=== PATIENT | female | born 1935 | race Caucasian/White ===

== ENCOUNTER 2020-04-11 13:56 | Outpatient (REF) | payer MEDICARE, SELFPAY ==
[2020-04-11 16:46] LABS: INTERNATIONAL NORM RATIO 2.9 (0.9-1.1); Prothrombin Time 34.5 SEC (10.8-13.0)
== END 2020-04-11 13:57 | disposition home or self-care (01) ==
LOC: HO.HMGCLR 13:56
DX: I48.91 Unspecified atrial fibrillation (principal)
CPT/HCPCS: 36415; 85610

== ENCOUNTER 2020-06-12 10:01 | Outpatient (REF) | payer MEDICARE, SELFPAY ==
[2020-06-12 11:27] LABS: INTERNATIONAL NORM RATIO 2.4 (0.9-1.1); Prothrombin Time 28.2 SEC (10.8-13.0)
== END 2020-06-12 10:02 | disposition home or self-care (01) ==
LOC: HO.HMGCLR 10:01
DX: I48.91 Unspecified atrial fibrillation (principal)
CPT/HCPCS: 36415; 85610

== ENCOUNTER 2020-08-20 11:08 | Outpatient (REF) | payer MEDICARE, SELFPAY ==
[2020-08-20 11:31] VITALS: BP 193/88; PULSE 67; RESP 16; TEMP 37.3; O2SAT 97
[2020-08-20 11:36] VITALS: BMI 27.8
== END 2020-08-20 11:09 | disposition home or self-care (01) ==
LOC: HO.MS 11:08
PROVIDERS: Visit Provider Ophthalmology
PROC: (CPT 66821; principal; 2020-08-20 13:30)
DX: H26.492 Other secondary cataract, left eye (principal); Z96.1 Presence of intraocular lens; Z95.0 Presence of cardiac pacemaker; Z79.01 Long term (current) use of anticoagulants; Z79.899 Other long term (current) drug therapy; Z88.1 Allergy status to other antibiotic agents; Z88.2 Allergy status to sulfonamides
CPT/HCPCS: 66821

== ENCOUNTER 2020-09-03 12:52 | Outpatient (REF) | payer MEDICARE, SELFPAY ==
[2020-09-03 13:35] VITALS: BMI 27.8
[2020-09-03 13:36] VITALS: BP 189/83; PULSE 65; RESP 16; TEMP 37.1; O2SAT 95
== END 2020-09-03 12:53 | disposition home or self-care (01) ==
LOC: HO.MS 12:52
PROVIDERS: Visit Provider Ophthalmology
PROC: (CPT 66821; principal; 2020-09-03 14:40)
DX: H26.491 Other secondary cataract, right eye (principal); Z96.1 Presence of intraocular lens; I48.91 Unspecified atrial fibrillation; Z95.0 Presence of cardiac pacemaker; Z79.01 Long term (current) use of anticoagulants; Z79.899 Other long term (current) drug therapy
CPT/HCPCS: 66821

== ENCOUNTER 2020-09-29 21:50 | Emergency (ER) | payer MEDICARE, SELFPAY ==
--- NOTE | ~2020-09-29 | CT_ITS ---
EXAMINATION: CT BRAIN WITHOUT CONTRAST. Chest x-ray. CLINICAL INFORMATION: Dizziness COMPARISON: None TECHNIQUE: 5 mm thin axial and reformatted 2 mm thin sagittal coronal images of brain were obtained. DLP: [id number] FINDINGS: CHEST: The lungs are hyperinflated but clear of acute process. Heart size is mildly enlarged. There are dual pacer electrodes both in right ventricle. No gross bony abnormality seen BRAIN: There is no acute intra-axial, extra-axial bleed, masses or midline shift. There is no acute infarction in evolution. The lateral ventricles are symmetrical in size and configuration without enlargement. There is benign hyperostosis frontalis interna. Bone windows reveal no calvarial abnormality. There is no scalp soft tissue abnormality seen. Bilateral paranasal sinuses and mastoid air cells are well-aerated. CT/CT head/brain wo con IMPRESSION: Hyperinflated lungs without acute process. There is mild cardiomegaly. There are dual pacer electrodes both in the right ventricle. There is no acute intracranial process seen
[2020-09-29 22:38] VITALS: BP 191/80; BP 210/100; PULSE 60; PULSE 68; RESP 18; TEMP 36.6; O2SAT 97; O2SAT 98; BMI 31.5
--- NOTE | 2020-09-29 23:34 | ECG_ITS ---
Test Reason : DIZZINESS Blood Pressure : / mmHG Vent. Rate : 062 BPM Atrial Rate : 062 BPM P-R Int : 000 ms QRS Dur : 162 ms QT Int : 470 ms P-R-T Axes : 000 114 019 degrees QTc Int : 477 ms Ventricular-paced rhythm Abnormal ECG When compared with ECG of 28-JAN-2020 18:40, Vent. rate has increased BY 2 BPM Referred By: Thomas Parada Electronically Signed By:Chace Trivedi
--- NOTE | 2020-09-29 23:36 | ED_ITS ---
HPI - Dizziness General Chief Complaint: Dizziness Stated Complaint: dizzy Time Seen by Provider: 09/29/20 23:32 Source: patient and family (Granddaughter) Mode of arrival: ambulatory Limitations: no limitations History of Present Illness HPI Narrative: This is a 85-year-old female came in for evaluation of dizziness. 85 years old female came in with her granddaughter for evaluation of dizziness that was described as a room spinning around her, symptoms started 3 days ago, patient thought the symptoms is related to dehydration because the patient was not drinking enough fluids that day, patient normally is highly functional and lives home alone independently. Patient stated that the symptoms improved with drinking plenty of fluid, patient came to the hospital today because she still not feeling back to normal baseline. Patient declined any focal weakness or numbness. Related Data Allergies Allergy/AdvReac Type Severity Reaction Status Date / Time amoxicillin [Amoxicillin] Allergy Mild RASH Verified 09/29/20 22:38 Sulfa (Sulfonamide Allergy Mild RASH Verified 09/29/20 22:38 Antibiotics) sulfacetamide Allergy Unknown Unknown Verified 09/29/20 22:38 Review of Systems Review of Systems: All other systems are reviewed and are negative Constitutional: Reports as per HPI and Reports no additional constitutional complaints Eyes: Reports as per HPI and Reports no additional eye complaints Reports system reviewed and no additional complaints, except as documented Cardiovascular: Reports as per HPI patient has complained of palpitation. Respiratory: Reports as per HPI and Reports no additional respiratory complaints Gastrointestinal: Reports as per HPI and Reports no additional gastrointestinal complaints Genitourinary: Reports no additional female genitourinary complaints Musculoskeletal: Reports no additional musculoskeletal complaints Skin/Breast: Reports system reviewed and no additional complaints, except as docu Psychiatric: Reports no additional psychiatric complaints Endocrine: Reports no additional endocrine complaints Hematologic/Lymphatic: Reports no additional hematologic/lymphatic complaints Allergic/Immunologic: Reports no additional allergic/immunologic complaints Reports system reviewed and no additional complaints, except as documented and Reports Abnormal speech present [facility] Past Medical History Medical History Atrial fibrillation H/O cardiac pacemaker Social History Social History Smoking Status: Never smoker Use of substances other than those prescribed or required for medical reasons: No Advance Directives: Yes Advance Directives Date on File: 08/20/20 Physical Exam Vital Signs: Vital Signs: Last Vital Signs Temp 97.8 F 09/30/20 00:00 Pulse 89 09/30/20 06:00 Resp 23 H 09/30/20 06:00 BP 111/67 09/30/20 06:00 Pulse Ox 96 09/30/20 06:00 Body Mass Index 31.5 Vital signs have been reviewed as appeared to be correct. Blood pressure eleva misti. Heart rate normal. Respiration rate normal. Temperature normal. Oxygen saturation normal. Appearance: Alert. Oriented X3. No acute distress. Head: Normal external exam. Normocephalic. Atraumatic. No [place]ritchett signs noted. No raccoon eyes noted Eyes: PERRLA. EOMI. Conjunctiva and sclera normal. Eyelids normal. ENT: TM's Normal. Pharynx normal. Uvula midline. Moist mucous membranes. No trismus noted. No drooling noted. No muffled voice noted. Neck: Normal inspection. Neck supple. FROM. No adenopathy. Thyroid Normal. No meningeal signs. No neck mass noted. CVS: Normal heart rate and rhythm. Heart sound normal. No murmurs noted. Pulses normal throughout. Respiratory: No respiratory distress. Painless inspiration. Breath sounds normal. No wheezes/rales/rhonchi noted. Chest nontender. No accessory muscle usage noted or decreased air movement noted. Abdomen: Soft and nontender. Bowel sounds normal in all 4 quadrants. No distention noted. No organomegaly noted. No visible injury noted. Back: No CVA tenderness. Full range of motion noted. Skin: Skin warm and dry. Normal skin color. Normal skin turgor. No rashes/lesions/lacerations noted. Extremities: No lower extremity edema. Extremities exhibit normal range of motion. Extremities nontender. Neuro: Oriented X 3. No motor deficit. No sensory deficit. Reflexes normal. Able to ambulate in the emergency department with steady gait Course Course Course Narrative: Assessment and plan. 85-year-old female with history of vertigo presented with 3 days of vertigo/dizziness, patient has a normal neuro exam, unremarkable head CT, labs are unremarkable except for slightly elevated troponin and repeat troponin was 3 hours apart with less than the 1st 1. Patient declined any chest pain or shortness of breath, patient is awake and alert, repeat neuro exam is intact, patient feels better after hydration, will discharge the patient with instruction of rest, and drink plenty of fluid. MDM - Dizziness Lab Data Attestation: I reviewed the patient's lab results. Result diagrams: 09/30/20 01:05 09/30/20 01:05 Labs: Lab Results 09/30/20 09/30/20 09/30/20 Range/Units 01:05 01:05 01:05 WBC 4.7 L (4.8-10.8) X10*3/uL RBC 4.43 (4.20-5.50) X10*6/uL Hgb 13.4 (12.0-16.0) g/dl Hct 41.6 (37-47) % MCV 93.9 (80-98) fL MCH 30.2 (27.0-33.0) pg MCHC 32.2 (31.0-35.0) g/dl RDW 13.8 (11.0-16.0) % Plt Count 181 (160-400) X10*3/uL MPV 10.4 (9.4-12.3) fL Immature Gran % (Auto) 0.4 (0.0-0.4) % Neut % (Auto) 75.6 H (45-73) % Lymph % (Auto) 16.3 L (20-40) % [place] % (Auto) 6.7 (2-11) % Eos % (Auto) 0.4 (0-4) % Baso % (Auto) 0.6 (0-2) % Lymph # (Auto) 0.8 L (1.2-4.9) X10*3/uL [place] # (Auto) 0.3 (0.1-1.2) X10*3/uL Eos # (Auto) 0.0 (0.0-0.4) X10*3/uL Baso # (Auto) 0.0 (0.0-0.2) X10*3/uL Abs Immat Gran (auto) 0.02 (0.00-0.03) X10*3/uL Absolute Neuts (auto) 3.5 (2.0-8.3) X10*3/uL Absolute Nucleated RBC 0.000 (0.0-0.012) X10*3/uL Nucleated RBC % (auto) 0.0 (0.0-0.2) /100WBC Sodium 140 (135-145) mmol/L Potassium 4.2 (3.3-5.1) mmol/L Chloride 100 (96-108) mmol/L Carbon Dioxide 31 H (22-29) mmol/L Anion Gap 13 (12-20) BUN 13 (9-16) mg/dL Creatinine 0.81 (0.5-1.4) mg/dL Estim Creat Clear Calc 66.0 Estimated GFR > 60 Random Glucose 104 (60-115) mg/dL Calcium 9.4 (8.4-10.2) mg/dL Total Bilirubin 0.9 (0.0-1.0) mg/dL Direct Bilirubin 0.5 (0.0-0.5) mg/dL AST 16 (5-31) U/L ALT 7 (0-31) U/L Alkaline Phosphatase 128 H (39-117) U/L Troponin I High Sens 18.2 H (<3.5-17.0) ng/L B-Natriuretic Peptide 409 H (<100) pg/mL Total Protein 7.8 (6.5-8.0) g/dL Albumin 4.1 (3.5-5.0) g/dL Lipase 12 (8-78) U/L Urine Color Urine Appearance Urine pH (5.0-8.0) Ur Specific [place] (1.005-1.025) Urine Protein (NEG-TRACE) MG/DL Urine Glucose (UA) (NEG) MG/DL Urine Ketones (NEG) MG/DL Urine Blood (NEG) Urine Nitrite (NEG) Ur Leukocyte Esterase (NEG) Coronavirus (PCR) (Negative) Influenza Type A (PCR) (Negative) Influenza Type B (PCR) (Negative) RSV RNA Qual (PCR) (Negative) 09/30/20 09/30/20 09/30/20 Range/Units 01:27 02:21 05:17 WBC (4.8-10.8) X10*3/uL RBC (4.20-5.50) X10*6/uL Hgb (12.0-16.0) g/dl Hct (37-47) % MCV (80-98) fL MCH (27.0-33.0) pg MCHC (31.0-35.0) g/dl RDW (11.0-16.0) % Plt Count (160-400) X10*3/uL MPV (9.4-12.3) fL Immature Gran % (Auto) (0.0-0.4) % Neut % (Auto) (45-73) % Lymph % (Auto) (20-40) % [place] % (Auto) (2-11) % Eos % (Auto) (0-4) % Baso % (Auto) (0-2) % Lymph # (Auto) (1.2-4.9) X10*3/uL [place] # (Auto) (0.1-1.2) X10*3/uL Eos # (Auto) (0.0-0.4) X10*3/uL Baso # (Auto) (0.0-0.2) X10*3/uL Abs Immat Gran (auto) (0.00-0.03) X10*3/uL Absolute Neuts (auto) (2.0-8.3) X10*3/uL Absolute Nucleated RBC (0.0-0.012) X10*3/uL Nucleated RBC % (auto) (0.0-0.2) /100WBC Sodium (135-145) mmol/L Potassium (3.3-5.1) mmol/L Chloride (96-108) mmol/L Carbon Dioxide (22-29) mmol/L Anion Gap (12-20) BUN (9-16) mg/dL Creatinine (0.5-1.4) mg/dL Estim Creat Clear Calc Estimated GFR Random Glucose (60-115) mg/dL Calcium (8.4-10.2) mg/dL Total Bilirubin (0.0-1.0) mg/dL Direct Bilirubin (0.0-0.5) mg/dL AST (5-31) U/L ALT (0-31) U/L Alkaline Phosphatase (39-117) U/L Troponin I High Sens 17.2 H (<3.5-17.0) ng/L B-Natriuretic Peptide (<100) pg/mL Total Protein (6.5-8.0) g/dL Albumin (3.5-5.0) g/dL Lipase (8-78) U/L Urine Color YELLOW Urine Appearance CLEAR Urine pH 7.0 (5.0-8.0) Ur Specific [place] 1.015 (1.005-1.025) Urine Protein NEG (NEG-TRACE) MG/DL Urine Glucose (UA) NEG (NEG) MG/DL Urine Ketones NEG (NEG) MG/DL Urine Blood NEG (NEG) Urine Nitrite NEG (NEG) Ur Leukocyte Esterase NEG (NEG) Coronavirus (PCR) NEGATIVE (Negative) Influenza Type A (PCR) NEGATIVE (Negative) Influenza Type B (PCR) NEGATIVE (Negative) RSV RNA Qual (PCR) NEGATIVE (Negative) Imaging Data CT scan - head: Radiologist's impression: No acute intracranial pathology. Chest x-ray: Radiologist's impression: Hyperinflated lungs without acute process, there is a mild cardiomegaly. ECG Data Interpretation: Ventricular paced rhythm at 62 beats per minutes. Discharge Plan Discharge Clinical Impression: Vertigo Patient Disposition: Home, Self-Care Instructions: Dizziness (ED) Additional Instructions: rest home for the next 2 days, drink plenty of fluid. Referrals: Jian Tinoco MD [Primary Care Provider] - 2 days
[2020-09-30] VITALS (7 sets, daily range): BP systolic 111–186; BP diastolic 64–85; PULSE 62–89; RESP 14–23; TEMP 36.6; O2SAT 96–98
[2020-09-30] MEDS: 0.9 % Sodium Chloride 1,000 ML 999 ML IVCONT (01:18)
[2020-09-30 01:21] LABS: MANUAL DIFF FLAG NO
[2020-09-30 01:25] LABS: Basophils Percent Auto 0.6 % (0-2); Eosinophils Percent Auto 0.4 % (0-4); Hematocrit 41.6 % (37-47); Hemoglobin 13.4 g/dl (12.0-16.0); Imm Gran Abs Auto 0.02 X10*3/uL (0.00-0.03); Imm Gran Pct Auto 0.4 % (0.0-0.4); Lymphocytes Absolute Auto 0.8 X10*3/uL (1.2-4.9); Lymphocytes Percent Auto 16.3 % (20-40); Mean Corpuscular HGB Conc 32.2 g/dl (31.0-35.0); Mean Corpuscular Hemoglobin 30.2 pg (27.0-33.0); Mean Corpuscular Volume 93.9 fL (80-98); Mean Platelet Volume 10.4 fL (9.4-12.3); Monocytes Absolute Auto 0.3 X10*3/uL (0.1-1.2); Monocytes Percent Auto 6.7 % (2-11); Neutrophils Absolute Auto 3.5 X10*3/uL (2.0-8.3); Neutrophils Percent Auto 75.6 % (45-73); Platelet Count 181 X10*3/uL (160-400); Red Blood Count 4.43 X10*6/uL (4.20-5.50); Red Cell Distribution Width 13.8 % (11.0-16.0); White Blood Count 4.7 X10*3/uL (4.8-10.8)
[2020-09-30 01:46] LABS: Alanine Aminotransferase 7 U/L (0-31); Albumin Level 4.1 g/dL (3.5-5.0); Alkaline Phosphatase 128 U/L (39-117); Anion Gap 13 (12-20); Aspartate Amino Transferase 16 U/L (5-31); Bilirubin Direct 0.5 mg/dL (0.0-0.5); Bilirubin Total 0.9 mg/dL (0.0-1.0); Blood Urea Nitrogen 13 mg/dL (9-16); Calcium 9.4 mg/dL (8.4-10.2); Carbon Dioxide 31 mmol/L (22-29); Chloride 100 mmol/L (96-108); Estimated Glomerular Filt Rate > 60; Glucose Random 104 mg/dL (60-115); Lipase 12 U/L (8-78); Potassium 4.2 mmol/L (3.3-5.1); Sodium 140 mmol/L (135-145); Total Protein 7.8 g/dL (6.5-8.0)
[2020-09-30 01:52] LABS: B Type Natriuretic Peptide 409 pg/mL (<100)
[2020-09-30 01:53] LABS: Troponin-I High Sensitivity 18.2 ng/L (<3.5-17.0)
[2020-09-30 02:11] LABS: Influenza A PCR NEGATIVE (Negative); Influenza B PCR NEGATIVE (Negative); Resp Syncy Virus RNA Qual PCR NEGATIVE (Negative); SARS COV2 PCR INHOUSE NEGATIVE (Negative)
[2020-09-30 02:31] LABS: Glucose Urine UA NEG (NEG); Leukocyte Esterase Urine NEG (NEG); Nitrite Urine NEG (NEG); Specific Gravity - Urine 1.015 (1.005-1.025); Urine Blood NEG (NEG); Urine Ketones NEG (NEG); Urine Protein NEG (NEG-TRACE)
[2020-09-30 02:32] LABS: Appearance Urine CLEAR; Color Urine YELLOW
[2020-09-30 05:47] LABS: Troponin-I High Sensitivity 17.2 ng/L (<3.5-17.0)
== END 2020-09-30 07:43 | disposition home or self-care (01) ==
PROVIDERS: Emergency Provider Emergency Medicine; PCP Family Medicine
DX: R42 Dizziness and giddiness (principal); Z20.822 Contact with and (suspected) exposure to COVID-19; Z95.0 Presence of cardiac pacemaker; I48.91 Unspecified atrial fibrillation
CPT/HCPCS: 0241U; 36415; 70450; 71045; 80048; 80076; 81003; 83690; 83880; 84484; 85025; 93005; 96360; 99284

== ENCOUNTER 2021-01-19 15:12 | Emergency (ER) | payer MEDICARE, SELFPAY ==
--- NOTE | ~2021-01-19 | XR_ITS ---
EXAMINATION: XR CHEST CLINICAL INFORMATION: Weakness. COMPARISON: 09/29/2020 portable chest radiograph. TECHNIQUE: Frontal view of the chest was obtained. FINDINGS: Support devices: Left-sided dual-lead pacemaker with leads overlying the right ventricle without interval change. No significant abnormality is noted involving the heart, lungs, mediastinum, bony thorax or soft tissues. XR/XR chest 1V IMPRESSION: No acute cardiopulmonary process.
--- NOTE | ~2021-01-19 | CT_ITS ---
EXAMINATION: CT HEAD WITHOUT CONTRAST CLINICAL INFORMATION: Weakness. COMPARISON: 09/29/[address] scan. TECHNIQUE: Contiguous axial imaging was performed from the skull base to vertex without intravenous administration of contrast. Coronal and sagittal reformatted images were obtained. This CT examination was performed using dose optimization techniques as appropriate, variously including the following: *Automated exposure control *Adjustment of mA and/or kV according to patient size (this includes techniques or standardized protocols for targeted exams where dose is matched to indication/reason for exam; i.e. extremities or head) *Use of iterative reconstruction technique DLP: 658 mGy-cm FINDINGS: There is mild widening of the cortical sulci and associated ventriculomegaly. The lateral ventricles are symmetrical. The third and fourth ventricles are in their normal midline position. The basilar and prepontine cisterns are unremarkable. There is no acute intra or extracerebral abnormality. There is no mass effect or midline shift. Sections through the bony calvarium are unremarkable. Incidental hyperostosis frontalis interna. The orbits are intact. The paranasal sinuses are clear. The mastoid air cells are clear. CT/CT head/brain wo con IMPRESSION: No acute intracranial pathology.
[2021-01-19 15:20] VITALS: BP 162/73; PULSE 68; O2SAT 97
[2021-01-19 15:28] VITALS: BP 165/70; PULSE 64; RESP 16; TEMP 36.6; O2SAT 97; BMI 34.8
--- NOTE | 2021-01-19 15:32 | ECG_ITS ---
Test Reason : DIZZINESS Blood Pressure : / mmHG Vent. Rate : 061 BPM Atrial Rate : 063 BPM P-R Int : 000 ms QRS Dur : 158 ms QT Int : 472 ms P-R-T Axes : 000 113 018 degrees QTc Int : 475 ms Ventricular-paced rhythm Underlying atrial rhythm appears to be possible AF Abnormal ECG When compared with ECG of 30-SEP-2020 00:39, No significant change was found Referred By: Generic ED Physician Electronically Signed By:HECTOR HOWARD MD
[2021-01-19 15:55] VITALS: BP 153/61; PULSE 60; RESP 16; O2SAT 98
--- NOTE | 2021-01-19 16:05 | ED.WEAKNESS ---
HPI - Weakness General Chief complaint: Weakness Stated complaint: dizzy, lightheaded Time Seen by Provider: 01/19/21 16:05 Source: patient Mode of arrival: ambulatory Limitations: no limitations History of Present Illness Complaint: generalized weakness Onset (ago): hour(s) (early this AM upon waking) Duration: improved Location: generalized Migration: none Severity: moderate Quality: dull Relieving factors: none Exacerbating factors: movement Context: history of similar Associated symptoms: other (dizziness) Related Data Previous Rx's Medication Instructions Recorded cefuroxime axetil 250 mg PO BID 7 Days #14 tab 01/19/21 Allergies Allergy/AdvReac Type Severity Reaction Status Date / Time amoxicillin [Amoxicillin] Allergy Mild RASH Verified 09/29/20 22:38 Sulfa (Sulfonamide Allergy Mild RASH Verified 09/29/20 22:38 Antibiotics) sulfacetamide Allergy Unknown Unknown Verified 09/29/20 22:38 Review of Systems Review of Systems: Constitutional : No Weight loss, No Fever, No Chills, No Fatigue, No Malaise ENT/Mouth : No sore throat, No Rhinorrhea Eyes: No Eye Pain, No Swelling, No Redness Cardiovascular : No Chest Pain, No SOB, No Dyspnea on Exertion, No Orthopnea, No Edema, No Palpitations Respiratory : No Cough, No Sputum, No Wheezing Gastrointestinal : No Nausea, No Vomiting, No Diarrhea, No Constipation, No abdominal Pain, No Hematochezia, No Melena Genitourinary : No Dysuria, No Urinary Frequency, No Hematuria, Musculoskeletal : No joint pain, No Myalgias, No Joint Swelling Skin : No Skin Lesions, No rash Neuro : pos Weakness, No Numbness, pos Dizziness, No Headache Psych : No Anxiety/Panic, No Depression Heme/Lymph: No Bruising, No Bleeding,No Lymphadenopathy Endocrine : No Polyuria, No Polydipsia All other systems reviewed and are negative PMFSH Past Medical History Attestation statement: The following information was validated with the patient. Medical History Atrial fibrillation H/O cardiac pacemaker Social History Social History Alcohol intake: never Patient Tobacco Use Status: Never used Tobacco Use of substances other than those prescribed or required for medical reasons: No Advance Directives: No Advance Directives Information Provided: No Advance Directives Date on File: 08/20/20 Physical Exam Vital Signs: Vital Signs: Last Vital Signs Temp 97.8 F 01/19/21 15:28 Pulse 80 01/19/21 18:12 Resp 16 01/19/21 18:12 BP 178/84 H 01/19/21 18:12 Pulse Ox 95 01/19/21 18:12 Body Mass Index 34.8 Appearance: Alert. Oriented X3. No acute distress. Eyes: Pupils equal, round and reactive to light. ENT: Pharynx normal. Neck: Normal inspection. Neck supple. CVS: Normal heart rate and rhythm. Pulses normal. Ejection murmur heard best left lower chest Respiratory: No respiratory distress. Breath sounds normal. Abdomen: Soft and nontender. Skin: Skin warm and dry. Normal skin color. Normal skin turgor. Extremities: No lower extremity edema. No calf ttp Neuro: Oriented X 3. No motor deficit. No sensory deficit. Course Course Course Narrative: WBCs in urine clumps - will start on IV antibiotics for infection no signs of sepsis, feels better, up and to the bathroom with a steady gait and no complaints, wants to go home MDM - Weakness MDM Narrative Medical decision making narrative: 85 yo female with hx of HTN, PPM afib on coumadin comes in with c/o diffuse weakness, dizziness that is improving episode this AM - states she still just doesn't feel right, will need labs, EKG, IVF, CT head for ICH, UA, no CP/SOB, no GIB symptoms dispo per results and findings, no focal deficits noted Lab Data Result diagrams: 01/19/21 16:41 01/19/21 16:41 Labs: Lab Results 01/19/21 01/19/21 01/19/21 Range/Units 16:25 16:41 16:41 WBC 5.0 (4.8-10.8) X10*3/uL RBC 4.58 (4.20-5.50) X10*6/uL Hgb 13.8 (12.0-16.0) g/dl Hct 41.6 (37-47) % MCV 90.8 (80-98) fL MCH 30.1 (27.0-33.0) pg MCHC 33.2 (31.0-35.0) g/dl RDW 13.9 (11.0-16.0) % Plt Count 152 L (160-400) X10*3/uL MPV 10.5 (9.4-12.3) fL Immature Gran % (Auto) 0.2 (0.0-0.4) % Neut % (Auto) 77.4 H (45-73) % Lymph % (Auto) 13.1 L (20-40) % [place] % (Auto) 7.9 (2-11) % Eos % (Auto) 0.6 (0-4) % Baso % (Auto) 0.8 (0-2) % Lymph # (Auto) 0.7 L (1.2-4.9) X10*3/uL [place] # (Auto) 0.4 (0.1-1.2) X10*3/uL Eos # (Auto) 0.0 (0.0-0.4) X10*3/uL Baso # (Auto) 0.0 (0.0-0.2) X10*3/uL Abs Immat Gran (auto) 0.01 (0.00-0.03) X10*3/uL Absolute Neuts (auto) 3.9 (2.0-8.3) X10*3/uL Absolute Nucleated RBC 0.000 (0.0-0.012) X10*3/uL Nucleated RBC % (auto) 0.0 (0.0-0.2) /100WBC PT 36.0 H (9.9-13.0) SEC INR 3.1 H (0.9-1.1) APTT 46.0 H (24.1-38.0) SEC Sodium (135-145) mmol/L Potassium (3.3-5.1) mmol/L Chloride (96-108) mmol/L Carbon Dioxide (22-29) mmol/L Anion Gap (12-20) BUN (9-16) mg/dL Creatinine (0.5-1.4) mg/dL Estim Creat Clear Calc Estimated GFR Random Glucose (60-115) mg/dL Lactic Acid (0.5-2.0) mmol/L Calcium (8.4-10.2) mg/dL Magnesium (1.6-2.6) mg/dL Total Bilirubin (0.0-1.0) mg/dL Direct Bilirubin (0.0-0.5) mg/dL AST (5-31) U/L ALT (0-31) U/L Alkaline Phosphatase (39-117) U/L Troponin I High Sens (<3.5-17.0) ng/L B-Natriuretic Peptide (<100) pg/mL Total Protein (6.5-8.0) g/dL Albumin (3.5-5.0) g/dL Lipase (8-78) U/L TSH (0.32-4.0) uIU/mL Urine Color STRAW Urine Appearance CLEAR Urine pH 6.0 (5.0-8.0) Ur Specific [place] <= 1.005 (1.005-1.025) Urine Protein NEG (NEG-TRACE) MG/DL Urine Glucose (UA) NEG (NEG) MG/DL Urine Ketones NEG (NEG) MG/DL Urine Blood TRACE (NEG) Urine Nitrite NEG (NEG) Ur Leukocyte Esterase 1+ H (NEG) Urine RBC 0-2 (0) /HPF Urine WBC 5-9 H (0-4) /HPF Urine WBC Clumps NOTED Ur Squamous Epith Cells 1+ /LPF Ur Renal Epithelial Cell TRACE /LPF Uric Acid Crystals 1+ /LPF Urine Bacteria TRACE /LPF Urine Mucus TRACE /LPF COVID-19 ([facility]) (Negative) COVID-19 Clin Com 01/19/21 01/19/21 01/19/21 Range/Units 16:41 16:41 16:41 WBC (4.8-10.8) X10*3/uL RBC (4.20-5.50) X10*6/uL Hgb (12.0-16.0) g/dl Hct (37-47) % MCV (80-98) fL MCH (27.0-33.0) pg MCHC (31.0-35.0) g/dl RDW (11.0-16.0) % Plt Count (160-400) X10*3/uL MPV (9.4-12.3) fL Immature Gran % (Auto) (0.0-0.4) % Neut % (Auto) (45-73) % Lymph % (Auto) (20-40) % [place] % (Auto) (2-11) % Eos % (Auto) (0-4) % Baso % (Auto) (0-2) % Lymph # (Auto) (1.2-4.9) X10*3/uL [place] # (Auto) (0.1-1.2) X10*3/uL Eos # (Auto) (0.0-0.4) X10*3/uL Baso # (Auto) (0.0-0.2) X10*3/uL Abs Immat Gran (auto) (0.00-0.03) X10*3/uL Absolute Neuts (auto) (2.0-8.3) X10*3/uL Absolute Nucleated RBC (0.0-0.012) X10*3/uL Nucleated RBC % (auto) (0.0-0.2) /100WBC PT (9.9-13.0) SEC INR (0.9-1.1) APTT (24.1-38.0) SEC Sodium 134 L (135-145) mmol/L Potassium 4.2 (3.3-5.1) mmol/L Chloride 97 (96-108) mmol/L Carbon Dioxide 29 (22-29) mmol/L Anion Gap 12 (12-20) BUN 13 (9-16) mg/dL Creatinine 0.81 (0.5-1.4) mg/dL Estim Creat Clear Calc 67.3 Estimated GFR > 60 Random Glucose 102 (60-115) mg/dL Lactic Acid (0.5-2.0) mmol/L Calcium 9.6 (8.4-10.2) mg/dL Magnesium 1.9 (1.6-2.6) mg/dL Total Bilirubin 0.9 (0.0-1.0) mg/dL Direct Bilirubin 0.4 (0.0-0.5) mg/dL AST 20 (5-31) U/L ALT < 6 (0-31) U/L Alkaline Phosphatase 128 H (39-117) U/L Troponin I High Sens 13.9 (<3.5-17.0) ng/L B-Natriuretic Peptide 476 H (<100) pg/mL Total Protein 7.9 (6.5-8.0) g/dL Albumin 4.2 (3.5-5.0) g/dL Lipase 12 (8-78) U/L TSH 1.47 (0.32-4.0) uIU/mL Urine Color Urine Appearance Urine pH (5.0-8.0) Ur Specific [place] (1.005-1.025) Urine Protein (NEG-TRACE) MG/DL Urine Glucose (UA) (NEG) MG/DL Urine Ketones (NEG) MG/DL Urine Blood (NEG) Urine Nitrite (NEG) Ur Leukocyte Esterase (NEG) Urine RBC (0) /HPF Urine WBC (0-4) /HPF Urine WBC Clumps Ur Squamous Epith Cells /LPF Ur Renal Epithelial Cell /LPF Uric Acid Crystals /LPF Urine Bacteria /LPF Urine Mucus /LPF COVID-19 ([facility]) Negative (Negative) COVID-19 Clin Com See Note 01/19/21 Range/Units 17:19 WBC (4.8-10.8) X10*3/uL RBC (4.20-5.50) X10*6/uL Hgb (12.0-16.0) g/dl Hct (37-47) % MCV (80-98) fL MCH (27.0-33.0) pg MCHC (31.0-35.0) g/dl RDW (11.0-16.0) % Plt Count (160-400) X10*3/uL MPV (9.4-12.3) fL Immature Gran % (Auto) (0.0-0.4) % Neut % (Auto) (45-73) % Lymph % (Auto) (20-40) % [place] % (Auto) (2-11) % Eos % (Auto) (0-4) % Baso % (Auto) (0-2) % Lymph # (Auto) (1.2-4.9) X10*3/uL [place] # (Auto) (0.1-1.2) X10*3/uL Eos # (Auto) (0.0-0.4) X10*3/uL Baso # (Auto) (0.0-0.2) X10*3/uL Abs Immat Gran (auto) (0.00-0.03) X10*3/uL Absolute Neuts (auto) (2.0-8.3) X10*3/uL Absolute Nucleated RBC (0.0-0.012) X10*3/uL Nucleated RBC % (auto) (0.0-0.2) /100WBC PT (9.9-13.0) SEC INR (0.9-1.1) APTT (24.1-38.0) SEC Sodium (135-145) mmol/L Potassium (3.3-5.1) mmol/L Chloride (96-108) mmol/L Carbon Dioxide (22-29) mmol/L Anion Gap (12-20) BUN (9-16) mg/dL Creatinine (0.5-1.4) mg/dL Estim Creat Clear Calc Estimated GFR Random Glucose (60-115) mg/dL Lactic Acid 1.0 (0.5-2.0) mmol/L Calcium (8.4-10.2) mg/dL Magnesium (1.6-2.6) mg/dL Total Bilirubin (0.0-1.0) mg/dL Direct Bilirubin (0.0-0.5) mg/dL AST (5-31) U/L ALT (0-31) U/L Alkaline Phosphatase (39-117) U/L Troponin I High Sens (<3.5-17.0) ng/L B-Natriuretic Peptide (<100) pg/mL Total Protein (6.5-8.0) g/dL Albumin (3.5-5.0) g/dL Lipase (8-78) U/L TSH (0.32-4.0) uIU/mL Urine Color Urine Appearance Urine pH (5.0-8.0) Ur Specific [place] (1.005-1.025) Urine Protein (NEG-TRACE) MG/DL Urine Glucose (UA) (NEG) MG/DL Urine Ketones (NEG) MG/DL Urine Blood (NEG) Urine Nitrite (NEG) Ur Leukocyte Esterase (NEG) Urine RBC (0) /HPF Urine WBC (0-4) /HPF Urine WBC Clumps Ur Squamous Epith Cells /LPF Ur Renal Epithelial Cell /LPF Uric Acid Crystals /LPF Urine Bacteria /LPF Urine Mucus /LPF COVID-19 ([facility]) (Negative) COVID-19 Clin Com ECG Data Attestation: I personally reviewed and interpreted this ECG as follows: ECG interpretation date: 07/24/21 ECG interpretation time: 16:15 Interpretation: Rate: 61 Rhythm: ventricular paced [place]: left wide QRS complex. ST T wave : nonspecific, no TONY qTC: normal prior studies: no ischemia artifact present The study has been interpreted contemporaneously by me. . Discharge Plan Discharge Clinical Impression: Acute UTI Patient Disposition: Home, Self-Care Instructions: Urinary Tract Infection in Women (ED) Additional Instructions: return to ED for any worsening symptoms or concerns INR 3.1 Prescriptions: New cefuroxime axetil 250 mg tablet 250 mg PO BID 7 Days Qty: 14 RF: 0 Referrals: Jian Tinoco MD [Primary Care Provider] - 2 days (if not better)
[2021-01-19 16:36] LABS: Glucose Urine UA NEG (NEG); Leukocyte Esterase Urine 1+ (NEG); Nitrite Urine NEG (NEG); Specific Gravity - Urine <= 1.005 (1.005-1.025); UACC Culture Trigger YES; Urine Blood TRACE (NEG); Urine Ketones NEG (NEG); Urine Protein NEG (NEG-TRACE)
[2021-01-19 16:39] LABS: Appearance Urine CLEAR; Color Urine STRAW
[2021-01-19 16:50] LABS: MANUAL DIFF FLAG NO
[2021-01-19 16:52] LABS: Bacteria Urine TRACE /LPF; RBC Urine 0-2 /HPF (0); Renal Epithelial Cells Urine TRACE /LPF; Squamous Epithelial Cell Urine 1+ /LPF
[2021-01-19 16:53] LABS: Mucus Urine TRACE /LPF; Uric Acid Crystals Urine 1+ /LPF; WBC Clumps Urine NOTED
[2021-01-19 16:55] LABS: Basophils Percent Auto 0.8 % (0-2); Eosinophils Percent Auto 0.6 % (0-4); Hematocrit 41.6 % (37-47); Hemoglobin 13.8 g/dl (12.0-16.0); Imm Gran Abs Auto 0.01 X10*3/uL (0.00-0.03); Imm Gran Pct Auto 0.2 % (0.0-0.4); Lymphocytes Absolute Auto 0.7 X10*3/uL (1.2-4.9); Lymphocytes Percent Auto 13.1 % (20-40); Mean Corpuscular HGB Conc 33.2 g/dl (31.0-35.0); Mean Corpuscular Hemoglobin 30.1 pg (27.0-33.0); Mean Corpuscular Volume 90.8 fL (80-98); Mean Platelet Volume 10.5 fL (9.4-12.3); Monocytes Absolute Auto 0.4 X10*3/uL (0.1-1.2); Monocytes Percent Auto 7.9 % (2-11); Neutrophils Absolute Auto 3.9 X10*3/uL (2.0-8.3); Neutrophils Percent Auto 77.4 % (45-73); Platelet Count 152 X10*3/uL (160-400); Red Blood Count 4.58 X10*6/uL (4.20-5.50); Red Cell Distribution Width 13.9 % (11.0-16.0)
[2021-01-19 17:00] LABS: INTERNATIONAL NORM RATIO 3.1 (0.9-1.1)
[2021-01-19 17:15] LABS: COVID-19 Test Negative (Negative)
[2021-01-19 17:21] LABS: Alanine Aminotransferase < 6 U/L (0-31); Albumin Level 4.2 g/dL (3.5-5.0); Alkaline Phosphatase 128 U/L (39-117); Anion Gap 12 (12-20); Aspartate Amino Transferase 20 U/L (5-31); Bilirubin Direct 0.4 mg/dL (0.0-0.5); Bilirubin Total 0.9 mg/dL (0.0-1.0); Blood Urea Nitrogen 13 mg/dL (9-16); Calcium 9.6 mg/dL (8.4-10.2); Carbon Dioxide 29 mmol/L (22-29); Chloride 97 mmol/L (96-108); Creatinine Clr Calc Pharmacy 67.3; Estimated Glomerular Filt Rate > 60; Glucose Random 102 mg/dL (60-115); Lipase 12 U/L (8-78); Magnesium 1.9 mg/dL (1.6-2.6); Potassium 4.2 mmol/L (3.3-5.1); Sodium 134 mmol/L (135-145); Total Protein 7.9 g/dL (6.5-8.0)
[2021-01-19 17:22] LABS: B Type Natriuretic Peptide 476 pg/mL (<100); Troponin-I High Sensitivity 13.9 ng/L (<3.5-17.0)
[2021-01-19] MEDS: cefTRIAXone sodium 1 GM in 0.9 % Sodium Chloride 50 ML IV (17:25)
[2021-01-19 17:39] LABS: TSH reflex Free T4 1.47 uIU/mL (0.32-4.0)
[2021-01-19 18:12] VITALS: BP 178/84; PULSE 80; RESP 16; O2SAT 95
== END 2021-01-19 19:05 | disposition home or self-care (01) ==
PROVIDERS: Emergency Provider Emergency Medicine; PCP Family Medicine
DX: N39.0 Urinary tract infection, site not specified (principal); Z20.822 Contact with and (suspected) exposure to COVID-19; R53.1 Weakness; I48.91 Unspecified atrial fibrillation; I10 Essential (primary) hypertension; Z79.01 Long term (current) use of anticoagulants
CPT/HCPCS: 36415; 70450; 71045; 80048; 80076; 81001; 81003; 83605; 83690; 83735; 83880; 84443; 84484; 85025; 85610; 85730; 87040; 87086; 87088; 87186; 87635; 93005; 96365; 99284; J0696

== ENCOUNTER 2021-01-20 13:06 | Emergency (ER) | payer MEDICARE, SELFPAY ==
[2021-01-20 13:11] VITALS: BP 167/83; PULSE 69; RESP 18; TEMP 36.8; O2SAT 95; BMI 29.8
--- NOTE | 2021-01-20 13:51 | ED_ITS ---
HPI - General Adult General Chief complaint: General Medical Stated complaint: WEAKNESS Time Seen by Provider: 01/20/21 13:08 Source: patient Mode of arrival: ambulatory History of Present Illness HPI narrative: 85-year-old female with a past medical history of AFib on Coumadin, pacemaker, Dx with UTI in our ED yesterday of IV Rocephin in the ED, then switched to Macrobid by pharmacy which patient took 1 dose of this morning, presenting back to emergency department complaining of generalized fatigue/weakness and mild nausea. Also reports postional room spinning dizziness, improved from yesterday but slightly still present. Denies CP/SOB, abdominal pain, vomiting, diarrhea, fever/chills. Tolerating p.o. WNL Related Data Previous Rx's Medication Instructions Recorded cefuroxime axetil 250 mg PO BID 7 Days #14 tab 01/19/21 cefuroxime axetil 250 mg PO BID 7 Days #14 tab 01/20/21 meclizine 25 mg PO TID PRN #14 tab 01/20/21 Allergies Allergy/AdvReac Type Severity Reaction Status Date / Time amoxicillin [Amoxicillin] Allergy Mild RASH Verified 09/29/20 22:38 Sulfa (Sulfonamide Allergy Mild RASH Verified 09/29/20 22:38 Antibiotics) sulfacetamide Allergy Unknown Unknown Verified 09/29/20 22:38 Review of Systems Review of Systems: Constitutional: No Fever, No Chills,+Fatigue, No Malaise Cardiovascular: No Chest Pain, No SOB Respiratory: No Cough, No Dyspnea Gastrointestinal: + Nausea, No Vomiting, No Diarrhea, No Constipation, No Abdominal pain Genitourinary: No Dysuria, No Urinary Frequency, No Hematuria, No Flank Pain Musculoskeletal: No joint pain, No Myalgias, No Joint Swelling Skin: No Skin Lesions, No rash Neuro: + Weakness, No Numbness, + Dizziness, No Headache Yes all other systems are reviewed and are negative [facility] Past Medical History Attestation statement: The following information was validated with the patient. Medical History Atrial fibrillation H/O cardiac pacemaker Social History Social History Alcohol intake: never Patient Tobacco Use Status: Never used Tobacco Smoked in Last 30 Days: No Use of substances other than those prescribed or required for medical reasons: No Advance Directives: Yes Advance Directives on File: Yes Advance Directives Date on File: 08/20/20 Physical Exam Vital Signs: Vital Signs: Last Vital Signs Temp 98.2 F 01/20/21 13:11 Pulse 72 01/20/21 16:19 Resp 18 01/20/21 13:11 BP 176/75 H 01/20/21 16:19 Pulse Ox 95 01/20/21 13:11 Body Mass Index 29.8 Const: General: cooperative, healthy appearing, no acute distress, well developed, alert, awake and Physically active Orientation/consciousness: patient oriented x3 Limitations: no limitations HENMT: Head: Yes normal to inspection Ears: hearing grossly normal bilaterally General nose exam: Normal external nose present Face and sinus: Yes normal facial exam Eyes: General: appearance normal, both eyes and all related structures Pupils: Equal, round and reactive pupils present EOM: EOMs intact bilaterally Neck: Neck: Yes normal visual inspection and Yes no meningeal signs Resp: Effort & Inspection: normal respiratory effort Auscultation: clear to auscultation bilaterally, no rales and no wheezes Cardio: Rate: regular rate Heart sounds: S1 normal heart sound present and S2 normal heart sound present GI: Inspection: Yes normal to inspection Palpation (GI): Soft to palpation, nontender, no guarding and not rigid : General: Yes no CVA tenderness Back/Spine/Pelvis: Back: no CVA tenderness Skin: Rashes: no rashes Wounds: no wounds Neuro: General: patient oriented x3 and no meningeal signs Cranial nerves: Yes Equal, round and reactive pupils present Gait exam (Neuro): Normal gait present Extrem: General: Yes normal to inspection and Yes no pedal edema Course Course Course Narrative: -chronic leukopenia of 4.2, INR 4.0 today, supratherapeutic will have patient hold and have INR rechecked tomorrow, labs otherwise unremarkable, lactic negative -troponin 13.7 equivocal from yesterday -UA appears improved from yesterday > for prior culture results pansensitive. Will discontinue Macrobid and reinitiate Ceftin -orthostatic vital signs negative -1720--patient ambulated steady with walker, reports symptomatic improvement after meclizine. Results discussed with patient including worrisome signs and symptoms and strict return precautions. She verbalized understanding feel safe for discharge home Medical Decision Making MDM Narrative Medical decision making narrative: 85-year-old female with a past medical history of AFib on Coumadin, pacemaker, Dx with UTI in our ED yesterday of IV Rocephin in the ED, then switched to Macrobid by pharmacy which patient took 1 dose of this morning, presenting back to emergency department complaining of generalized fatigue/weakness and mild nausea. Also reports positional room spinning dizziness. On exam vital signs stable, NAD/nontoxic, abdomen soft/nontender, no CVAT, no focal neuro deficits Labs/UA, CT head and CXR reviewed from yesterday No suspicion for sepsis. Rule out metabolic etiology. Concern for BPPV. Low concern for CVA/TIA or CVT. Plan: EKG, labs, UA, IVF, meclizine, reassess Lab Data Result diagrams: 01/20/21 14:27 01/20/21 14:27 Labs: Lab Results 01/20/21 01/20/21 01/20/21 Range/Units 14:27 14:27 14:27 WBC 4.2 L (4.8-10.8) X10*3/uL RBC 4.37 (4.20-5.50) X10*6/uL Hgb 13.1 (12.0-16.0) g/dl Hct 39.6 (37-47) % MCV 90.6 (80-98) fL MCH 30.0 (27.0-33.0) pg MCHC 33.1 (31.0-35.0) g/dl RDW 13.9 (11.0-16.0) % Plt Count 160 (160-400) X10*3/uL MPV 10.2 (9.4-12.3) fL Immature Gran % (Auto) 0.2 (0.0-0.4) % Neut % (Auto) 76.2 H (45-73) % Lymph % (Auto) 14.3 L (20-40) % [place] % (Auto) 8.3 (2-11) % Eos % (Auto) 0.5 (0-4) % Baso % (Auto) 0.5 (0-2) % Lymph # (Auto) 0.6 L (1.2-4.9) X10*3/uL [place] # (Auto) 0.4 (0.1-1.2) X10*3/uL Eos # (Auto) 0.0 (0.0-0.4) X10*3/uL Baso # (Auto) 0.0 (0.0-0.2) X10*3/uL Abs Immat Gran (auto) 0.01 (0.00-0.03) X10*3/uL Absolute Neuts (auto) 3.2 (2.0-8.3) X10*3/uL Absolute Nucleated RBC 0.000 (0.0-0.012) X10*3/uL Nucleated RBC % (auto) 0.0 (0.0-0.2) /100WBC PT (9.9-13.0) SEC INR (0.9-1.1) APTT (24.1-38.0) SEC Sodium 136 (135-145) mmol/L Potassium 4.0 (3.3-5.1) mmol/L Chloride 101 (96-108) mmol/L Carbon Dioxide 27 (22-29) mmol/L Anion Gap 12 (12-20) BUN 12 (9-16) mg/dL Creatinine 0.81 (0.5-1.4) mg/dL Estim Creat Clear Calc 68.3 Estimated GFR > 60 Random Glucose 95 (60-115) mg/dL Calcium 9.2 (8.4-10.2) mg/dL Magnesium 2.0 (1.6-2.6) mg/dL Total Bilirubin 0.8 (0.0-1.0) mg/dL Direct Bilirubin 0.5 (0.0-0.5) mg/dL AST 15 (5-31) U/L ALT < 6 (0-31) U/L Alkaline Phosphatase 106 (39-117) U/L Troponin I High Sens 13.7 (<3.5-17.0) ng/L B-Natriuretic Peptide (<100) pg/mL Total Protein 7.2 (6.5-8.0) g/dL Albumin 3.9 (3.5-5.0) g/dL Urine Color Urine Appearance Urine pH (5.0-8.0) Ur Specific [place] (1.005-1.025) Urine Protein (NEG-TRACE) MG/DL Urine Glucose (UA) (NEG) MG/DL Urine Ketones (NEG) MG/DL Urine Blood (NEG) Urine Nitrite (NEG) Ur Leukocyte Esterase (NEG) 01/20/21 01/20/21 01/20/21 Range/Units 14:27 14:27 16:02 WBC (4.8-10.8) X10*3/uL RBC (4.20-5.50) X10*6/uL Hgb (12.0-16.0) g/dl Hct (37-47) % MCV (80-98) fL MCH (27.0-33.0) pg MCHC (31.0-35.0) g/dl RDW (11.0-16.0) % Plt Count (160-400) X10*3/uL MPV (9.4-12.3) fL Immature Gran % (Auto) (0.0-0.4) % Neut % (Auto) (45-73) % Lymph % (Auto) (20-40) % [place] % (Auto) (2-11) % Eos % (Auto) (0-4) % Baso % (Auto) (0-2) % Lymph # (Auto) (1.2-4.9) X10*3/uL [place] # (Auto) (0.1-1.2) X10*3/uL Eos # (Auto) (0.0-0.4) X10*3/uL Baso # (Auto) (0.0-0.2) X10*3/uL Abs Immat Gran (auto) (0.00-0.03) X10*3/uL Absolute Neuts (auto) (2.0-8.3) X10*3/uL Absolute Nucleated RBC (0.0-0.012) X10*3/uL Nucleated RBC % (auto) (0.0-0.2) /100WBC PT 46.7 H D (9.9-13.0) SEC INR 4.0 H (0.9-1.1) APTT 45.5 H (24.1-38.0) SEC Sodium (135-145) mmol/L Potassium (3.3-5.1) mmol/L Chloride (96-108) mmol/L Carbon Dioxide (22-29) mmol/L Anion Gap (12-20) BUN (9-16) mg/dL Creatinine (0.5-1.4) mg/dL Estim Creat Clear Calc Estimated GFR Random Glucose (60-115) mg/dL Calcium (8.4-10.2) mg/dL Magnesium (1.6-2.6) mg/dL Total Bilirubin (0.0-1.0) mg/dL Direct Bilirubin (0.0-0.5) mg/dL AST (5-31) U/L ALT (0-31) U/L Alkaline Phosphatase (39-117) U/L Troponin I High Sens (<3.5-17.0) ng/L B-Natriuretic Peptide 324 H (<100) pg/mL Total Protein (6.5-8.0) g/dL Albumin (3.5-5.0) g/dL Urine Color YELLOW Urine Appearance CLEAR Urine pH 6.0 (5.0-8.0) Ur Specific [place] <= 1.005 (1.005-1.025) Urine Protein NEG (NEG-TRACE) MG/DL Urine Glucose (UA) NEG (NEG) MG/DL Urine Ketones NEG (NEG) MG/DL Urine Blood NEG (NEG) Urine Nitrite NEG (NEG) Ur Leukocyte Esterase NEG (NEG) Discharge Plan Discharge Clinical Impression: Acute UTI, Weakness, Vertigo, Elevated INR Patient Disposition: Home, Self-Care Instructions: Vertigo (ED), Elevated INR (ED), Urinary Tract Infection in Older Adults (ED) Additional Instructions: Discontinue previously prescribed Macrobid and start taking Ceftin Make sure your staying hydrated at home Meclizine is for vertigo/dizziness, take as needed Your INR was elevated today at 4.0, please hold your Coumadin dose tonight and have her INR rechecked If her symptoms persist or worsen, become unbearable, you are unable to eat or drink, have chest pain or shortness of breath, develops headache or weakness fever return to the ED You should follow-up with her primary care doctor as well as ENT specialist Prescriptions: New cefuroxime axetil 250 mg tablet 250 mg PO BID 7 Days Qty: 14 RF: 0 meclizine 25 mg tablet 25 mg PO TID PRN (Reason: dizziness) Qty: 14 RF: 0 No Action cefuroxime axetil 250 mg tablet 250 mg PO BID 7 Days Qty: 14 RF: 0 Referrals: Jian Tinoco MD [Primary Care Provider] - 2 days Iglesia [facility]ward [Physician] - 2 days
[2021-01-20 14:31] LABS: MANUAL DIFF FLAG NO
[2021-01-20 14:32] LABS: Basophils Percent Auto 0.5 % (0-2); Eosinophils Percent Auto 0.5 % (0-4); Hematocrit 39.6 % (37-47); Hemoglobin 13.1 g/dl (12.0-16.0); Imm Gran Abs Auto 0.01 X10*3/uL (0.00-0.03); Imm Gran Pct Auto 0.2 % (0.0-0.4); Lymphocytes Absolute Auto 0.6 X10*3/uL (1.2-4.9); Lymphocytes Percent Auto 14.3 % (20-40); Mean Corpuscular HGB Conc 33.1 g/dl (31.0-35.0); Mean Corpuscular Volume 90.6 fL (80-98); Mean Platelet Volume 10.2 fL (9.4-12.3); Monocytes Absolute Auto 0.4 X10*3/uL (0.1-1.2); Monocytes Percent Auto 8.3 % (2-11); Neutrophils Absolute Auto 3.2 X10*3/uL (2.0-8.3); Neutrophils Percent Auto 76.2 % (45-73); Platelet Count 160 X10*3/uL (160-400); Red Blood Count 4.37 X10*6/uL (4.20-5.50); Red Cell Distribution Width 13.9 % (11.0-16.0); White Blood Count 4.2 X10*3/uL (4.8-10.8)
[2021-01-20 14:40] LABS: Prothrombin Time 46.7 SEC (9.9-13.0)
[2021-01-20 14:42] LABS: Partial Thromboplastin Time 45.5 SEC (24.1-38.0)
[2021-01-20 14:55] LABS: Troponin-I High Sensitivity 13.7 ng/L (<3.5-17.0)
[2021-01-20 14:56] LABS: B Type Natriuretic Peptide 324 pg/mL (<100)
[2021-01-20 14:57] LABS: Alanine Aminotransferase < 6 U/L (0-31); Albumin Level 3.9 g/dL (3.5-5.0); Alkaline Phosphatase 106 U/L (39-117); Anion Gap 12 (12-20); Aspartate Amino Transferase 15 U/L (5-31); Bilirubin Direct 0.5 mg/dL (0.0-0.5); Bilirubin Total 0.8 mg/dL (0.0-1.0); Blood Urea Nitrogen 12 mg/dL (9-16); Calcium 9.2 mg/dL (8.4-10.2); Carbon Dioxide 27 mmol/L (22-29); Chloride 101 mmol/L (96-108); Creatinine Clr Calc Pharmacy 68.3; Estimated Glomerular Filt Rate > 60; Glucose Random 95 mg/dL (60-115); Sodium 136 mmol/L (135-145); Total Protein 7.2 g/dL (6.5-8.0)
--- NOTE | 2021-01-20 14:58 | ECG_ITS ---
Test Reason : DIZZINESS Blood Pressure : / mmHG Vent. Rate : 060 BPM Atrial Rate : 060 BPM P-R Int : 448 ms QRS Dur : 154 ms QT Int : 476 ms P-R-T Axes : 012 110 043 degrees QTc Int : 476 ms Ventricular-paced rhythm Possibly underlying atrial fibrillation Abnormal ECG When compared with ECG of 19-JAN-2021 15:52, No significant change was found Referred By: Kelli Ambrocio Electronically Signed By:JESSICA VARMA
[2021-01-20] MEDS: 0.9 % Sodium Chloride 1,000 ML 999 ML IVCONT (15:29)
[2021-01-20] MEDS: Meclizine HCl 25 MG TABLET PO (15:29)
[2021-01-20 16:09] LABS: Glucose Urine UA NEG (NEG); Leukocyte Esterase Urine NEG (NEG); Nitrite Urine NEG (NEG); Specific Gravity - Urine <= 1.005 (1.005-1.025); Urine Blood NEG (NEG); Urine Ketones NEG (NEG); Urine Protein NEG (NEG-TRACE)
[2021-01-20 16:11] LABS: Appearance Urine CLEAR; Color Urine YELLOW
[2021-01-20 16:13] VITALS: BP 170/68; PULSE 61
[2021-01-20 16:17] VITALS: BP 176/69; PULSE 63
[2021-01-20 16:19] VITALS: BP 176/75; PULSE 72
--- NOTE | 2021-01-20 17:12 | PC.NURSE ---
AMBULATED WITH CANE INDEPENDENTLY
== END 2021-01-20 17:45 | disposition home or self-care (01) ==
PROVIDERS: Physician Assistant; Emergency Provider Emergency Medicine; PCP Family Medicine
DX: N39.0 Urinary tract infection, site not specified (principal); R53.1 Weakness; R42 Dizziness and giddiness; R79.1 Abnormal coagulation profile; I48.91 Unspecified atrial fibrillation; Z79.01 Long term (current) use of anticoagulants; Z95.0 Presence of cardiac pacemaker
CPT/HCPCS: 36415; 80048; 80076; 81003; 83735; 83880; 84484; 85025; 85610; 85730; 93005; 96360; 99284

== ENCOUNTER 2021-02-06 12:00 | Emergency (ER) | payer MEDICARE, SELFPAY ==
--- NOTE | ~2021-02-06 | CT_ITS ---
EXAMINATION: CT HEAD WITHOUT CONTRAST CLINICAL INFORMATION: Fall, on Coumadin. COMPARISON: None TECHNIQUE: Contiguous axial imaging was performed from the skull base to vertex without intravenous administration of contrast. This CT examination was performed using dose optimization techniques as appropriate, variously including the following: *Automated exposure control *Adjustment of mA and/or kV according to patient size (this includes techniques or standardized protocols for targeted exams where dose is matched to indication/reason for exam; i.e. extremities or head) *Use of iterative reconstruction technique DLP: 627 mGy-cm FINDINGS: There is no evidence of acute intracranial hemorrhage or territorial infarction. No abnormal mass effect or midline shift is seen. [place] to white matter differentiation is well preserved. No extra-axial fluid collections are identified. Lateral ventricles are symmetrical in size and not enlarged. There is mild periventricular hypodensity without mass effect. The osseous structures and soft tissues are normal. The mastoid air cells and visualized portions of the paranasal sinuses are well aerated. CT/CT head/brain wo con IMPRESSION: No acute intracranial process seen.
[2021-02-06 12:05] VITALS: RESP 16; BMI 22.3
[2021-02-06 12:09] VITALS: BP 179/78; PULSE 67; RESP 16; TEMP 36.6; O2SAT 97
[2021-02-06 13:01] LABS: MANUAL DIFF FLAG NO
[2021-02-06 13:04] LABS: Basophils Percent Auto 0.5 % (0-2); Hematocrit 38.7 % (37-47); Hemoglobin 12.7 g/dl (12.0-16.0); Imm Gran Abs Auto 0.01 X10*3/uL (0.00-0.03); Imm Gran Pct Auto 0.3 % (0.0-0.4); Lymphocytes Absolute Auto 0.6 X10*3/uL (1.2-4.9); Lymphocytes Percent Auto 15.7 % (20-40); Mean Corpuscular HGB Conc 32.8 g/dl (31.0-35.0); Mean Corpuscular Hemoglobin 29.9 pg (27.0-33.0); Mean Corpuscular Volume 91.1 fL (80-98); Mean Platelet Volume 10.4 fL (9.4-12.3); Monocytes Absolute Auto 0.4 X10*3/uL (0.1-1.2); Monocytes Percent Auto 11.3 % (2-11); Neutrophils Absolute Auto 2.7 X10*3/uL (2.0-8.3); Neutrophils Percent Auto 71.2 % (45-73); Platelet Count 141 X10*3/uL (160-400); Red Blood Count 4.25 X10*6/uL (4.20-5.50); White Blood Count 3.8 X10*3/uL (4.8-10.8)
[2021-02-06 13:12] LABS: INTERNATIONAL NORM RATIO 2.8 (0.9-1.1); Prothrombin Time 32.6 SEC (9.9-13.0)
--- NOTE | 2021-02-06 13:16 | ED_ITS ---
HPI - Fall General Chief Complaint: Fall Stated Complaint: mechanical fall Time Seen by Provider: 02/06/21 13:12 Source: patient Mode of arrival: ambulatory Limitations: no limitations History of Present Illness HPI Narrative: Patient comes to complaining of a fall. Patient states she was at work, had a mechanical fall, hit the back of her head. Patient did not lose consciousness, states she does not have a headache, no neck pain. Patient came to the emergency room by ambulance because she was instructed to come to the emergency room she had any fall since she is on Coumadin. Initially patient complain of mild shoulder pain, but states that otherwise she feels well. Related Data Previous Rx's Medication Instructions Recorded cefuroxime axetil 250 mg tablet 250 mg PO BID 7 Days #14 tab 01/19/21 cefuroxime axetil 250 mg tablet 250 mg PO BID 7 Days #14 tab 01/20/21 meclizine 25 mg tablet 25 mg PO TID PRN #14 tab 01/20/21 Allergies Allergy/AdvReac Type Severity Reaction Status Date / Time amoxicillin [Amoxicillin] Allergy Mild RASH Verified 09/29/20 22:38 Sulfa (Sulfonamide Allergy Mild RASH Verified 09/29/20 22:38 Antibiotics) sulfacetamide Allergy Unknown Unknown Verified 09/29/20 22:38 Review of Systems Review of Systems: Constitutional : No Weight loss, No Fever, No Chills, No Night Sweats, No Fatigue, No Malaise ENT/Mouth : No Hearing loss, No Ear Pain, No Nasal Congestion, No Sinus Pain, No Hoarseness, No sore throat, No Rhinorrhea, No Swallowing Difficulty Eyes: No Eye Pain, No Swelling, No Redness, No Foreign Body, No Discharge, No Vision Changes Cardiovascular : No Chest Pain, No SOB, No Dyspnea on Exertion, No Orthopnea, No Edema, No Palpitations Respiratory : No Cough, No Sputum, No Wheezing, No Smoke Exposure, No Dyspnea Gastrointestinal : No Nausea, No Vomiting, No Diarrhea, No Constipation, No abdominal Pain, No Hematochezia, No Melena Genitourinary : no irregular bleeding, No Dysuria, No Urinary Frequency, No Hematuria, No Urinary Incontinence, No Urgency, No Flank Pain, No Urinary Flow Changes, No Hesitancy Musculoskeletal : Mild left shoulder pain, No Myalgias, No Joint Swelling Skin : No Skin Lesions, No rash Neuro : No Weakness, No Numbness, No Paresthesias, No Loss of Consciousness, No Dizziness, No Headache Psych : No Anxiety/Panic, No Depression, No SI/HI/AH/VH, No Social Issues, Heme/Lymph: No Bruising, No Bleeding,No Lymphadenopathy Endocrine : No Polyuria, No Polydipsia, No Temperature Intolerance [facility] Past Medical History Medical History Atrial fibrillation H/O cardiac pacemaker Social History Social History Alcohol intake: never Patient Tobacco Use Status: Never used Tobacco Advance Directives: Yes Advance Directives Information Provided: No Advance Directives on File: No Advance Directives Date on File: 08/20/20 Physical Exam Vital Signs: Vital Signs: Last Vital Signs Temp 97.7 F 02/06/21 14:31 Pulse 62 02/06/21 14:31 Resp 15 02/06/21 14:31 BP 182/82 H 02/06/21 14:31 Pulse Ox 96 02/06/21 14:31 Body Mass Index 22.3 Const: Other: Appearance: Alert. Oriented X3. No acute distress. Eyes: Pupils equal, round and reactive to light. ENT: Pharynx normal. Neck: Normal inspection. Neck supple. No lymph nodes noted. No crepitus. Normal range of motion, no palpable step-offs, no pain to palpation over the cervical spine CVS: Normal heart rate and rhythm. Pulses normal. Normal S1 and S2 Respiratory: No respiratory distress. Breath sounds normal. No Wheezing. No rales Abdomen: Soft and nontender. No rigidity. No distention. good BS x4 Skin: Skin warm and dry. Normal skin color. Normal skin turgor. No visible ecchymosis or lacerations/abrasions Extremities: No lower extremity edema. No lower extremity edema. No Lace rations. No Rash Neuro: Oriented X 3. No motor deficit. No sensory deficit. Moving all extermities. No slurred speech. Course Course Course Narrative: Patient remains asymptomatic, denies headache, no neurological deficit. Patient states she feels well. I discussed the CT scan with the patient, no acute findings. MDM - Fall Lab Data Result diagrams: 02/06/21 12:49 02/06/21 12:49 Labs: Lab Results 02/06/21 02/06/21 02/06/21 Range/Units 12:49 12:49 12:49 WBC 3.8 L (4.8-10.8) X10*3/uL RBC 4.25 (4.20-5.50) X10*6/uL Hgb 12.7 (12.0-16.0) g/dl Hct 38.7 (37-47) % MCV 91.1 (80-98) fL MCH 29.9 (27.0-33.0) pg MCHC 32.8 (31.0-35.0) g/dl RDW 14.0 (11.0-16.0) % Plt Count 141 L (160-400) X10*3/uL MPV 10.4 (9.4-12.3) fL Immature Gran % (Auto) 0.3 (0.0-0.4) % Neut % (Auto) 71.2 (45-73) % Lymph % (Auto) 15.7 L (20-40) % [place] % (Auto) 11.3 H (2-11) % Eos % (Auto) 1.0 (0-4) % Baso % (Auto) 0.5 (0-2) % Lymph # (Auto) 0.6 L (1.2-4.9) X10*3/uL [place] # (Auto) 0.4 (0.1-1.2) X10*3/uL Eos # (Auto) 0.0 (0.0-0.4) X10*3/uL Baso # (Auto) 0.0 (0.0-0.2) X10*3/uL Abs Immat Gran (auto) 0.01 (0.00-0.03) X10*3/uL Absolute Neuts (auto) 2.7 (2.0-8.3) X10*3/uL Absolute Nucleated RBC 0.000 (0.0-0.012) X10*3/uL Nucleated RBC % (auto) 0.0 (0.0-0.2) /100WBC PT 32.6 H D (9.9-13.0) SEC INR 2.8 H (0.9-1.1) Sodium 134 L (135-145) mmol/L Potassium 4.4 (3.3-5.1) mmol/L Chloride 98 (96-108) mmol/L Carbon Dioxide 29 (22-29) mmol/L Anion Gap 11 L (12-20) BUN 13 (9-16) mg/dL Creatinine 0.84 (0.5-1.4) mg/dL Estim Creat Clear Calc 43.0 Estimated GFR > 60 Random Glucose 84 (60-115) mg/dL Calcium 9.5 (8.4-10.2) mg/dL Troponin I High Sens (<3.5-17.0) ng/L 02/06/21 Range/Units 12:49 WBC (4.8-10.8) X10*3/uL RBC (4.20-5.50) X10*6/uL Hgb (12.0-16.0) g/dl Hct (37-47) % MCV (80-98) fL MCH (27.0-33.0) pg MCHC (31.0-35.0) g/dl RDW (11.0-16.0) % Plt Count (160-400) X10*3/uL MPV (9.4-12.3) fL Immature Gran % (Auto) (0.0-0.4) % Neut % (Auto) (45-73) % Lymph % (Auto) (20-40) % [place] % (Auto) (2-11) % Eos % (Auto) (0-4) % Baso % (Auto) (0-2) % Lymph # (Auto) (1.2-4.9) X10*3/uL [place] # (Auto) (0.1-1.2) X10*3/uL Eos # (Auto) (0.0-0.4) X10*3/uL Baso # (Auto) (0.0-0.2) X10*3/uL Abs Immat Gran (auto) (0.00-0.03) X10*3/uL Absolute Neuts (auto) (2.0-8.3) X10*3/uL Absolute Nucleated RBC (0.0-0.012) X10*3/uL Nucleated RBC % (auto) (0.0-0.2) /100WBC PT (9.9-13.0) SEC INR (0.9-1.1) Sodium (135-145) mmol/L Potassium (3.3-5.1) mmol/L Chloride (96-108) mmol/L Carbon Dioxide (22-29) mmol/L Anion Gap (12-20) BUN (9-16) mg/dL Creatinine (0.5-1.4) mg/dL Estim Creat Clear Calc Estimated GFR Random Glucose (60-115) mg/dL Calcium (8.4-10.2) mg/dL Troponin I High Sens 10.1 (<3.5-17.0) ng/L Imaging Data CT of the head: Radiologist's impression: INDINGS: There is no evidence of acute intracranial hemorrhage or territorial infarction. No abnormal mass effect or midline shift is seen. [place] to white matter differentiation is well preserved. No extra-axial fluid collections are identified. Lateral ventricles are symmetrical in size and not enlarged. There is mild periventricular hypodensity without mass effect. The osseous structures and soft tissues are normal. The mastoid air cells and visualized portions of the paranasal sinuses are well aerated. ? CT/CT head/brain wo con IMPRESSION: No acute intracranial process seen. Discharge Plan Discharge Clinical Impression: Head injury Fall Qualifiers: Encounter type: initial encounter Qualified Code(s): W19.XXXA - Unspecified fa ll, initial encounter Patient Disposition: Home, Self-Care Instructions: Fall Prevention (ED) Additional Instructions: Please follow-up with your primary care physician tomorrow. If you have any worsening or new symptoms, please return to the emergency room or call 911 Prescriptions: No Action cefuroxime axetil 250 mg tablet 250 mg PO BID 7 Days Qty: 14 RF: 0 meclizine 25 mg tablet 25 mg PO TID PRN (Reason: dizziness) Qty: 14 RF: 0 cefuroxime axetil 250 mg tablet 250 mg PO BID 7 Days Qty: 14 RF: 0
[2021-02-06 13:36] LABS: Anion Gap 11 (12-20); Blood Urea Nitrogen 13 mg/dL (9-16); Calcium 9.5 mg/dL (8.4-10.2); Carbon Dioxide 29 mmol/L (22-29); Chloride 98 mmol/L (96-108); Estimated Glomerular Filt Rate > 60; Glucose Random 84 mg/dL (60-115); Potassium 4.4 mmol/L (3.3-5.1); Sodium 134 mmol/L (135-145)
[2021-02-06 13:42] LABS: Troponin-I High Sensitivity 10.1 ng/L (<3.5-17.0)
[2021-02-06 14:31] VITALS: BP 182/82; PULSE 62; RESP 15; TEMP 36.5; O2SAT 96
== END 2021-02-06 16:12 | disposition home or self-care (01) ==
PROVIDERS: Emergency Provider Emergency Medicine; PCP Family Medicine
DX: S09.90XA Unspecified injury of head, initial encounter (principal); I48.91 Unspecified atrial fibrillation; Z79.01 Long term (current) use of anticoagulants; W19.XXXA Unspecified fall, initial encounter; Y93.9 Activity, unspecified; Y92.9 Unspecified place or not applicable; Y99.0 Civilian activity done for income or pay
CPT/HCPCS: 36415; 70450; 80048; 84484; 85025; 85610; 99283; 99284

== ENCOUNTER 2021-03-23 16:12 | Outpatient (REF) | payer MEDICARE, SELFPAY | END 2021-03-23 16:13 | disposition home or self-care (01) | LOC: HO.LNP 16:12 | PROVIDERS: Visit Provider Physician Assistant | DX: R30.0 Dysuria (principal) | CPT/HCPCS: 87086 ==

== ENCOUNTER 2021-12-19 06:54 | Emergency (ER) | payer MEDICARE, SELFPAY ==
--- NOTE | ~2021-12-19 | XR_ITS ---
EXAMINATION: XR CHEST CLINICAL INFORMATION: Cough COMPARISON: Chest radiograph 01/19/2021 TECHNIQUE: Frontal view of the chest was obtained. FINDINGS: The heart is enlarged, slightly larger than seen on 01/19/2021. Again seen is a left chest wall pacemaker with 2 leads, both at the right ventricular apex. There is mild upper zone redistribution suggesting mild CHF, improved from prior. Atelectasis is present in the posterior basal segment of the left lower lobe. No gross consolidations with air bronchograms seen. No lung masses or pleural effusions. XR/XR chest 1V IMPRESSION: Cardiomegaly with mild vascular congestion. Left basilar atelectasis.
[2021-12-19 07:15] VITALS: BP 153/74; BP 161/74; PULSE 60; PULSE 62; RESP 14; TEMP 36.4; O2SAT 97; O2SAT 98; BMI 32.0
[2021-12-19 07:18] VITALS: PULSE 61; RESP 16; O2SAT 96
--- NOTE | 2021-12-19 07:27 | ECG_ITS ---
Test Reason : palpitation Blood Pressure : / mmHG Vent. Rate : 071 BPM Atrial Rate : 288 BPM P-R Int : 000 ms QRS Dur : 166 ms QT Int : 468 ms P-R-T Axes : 000 115 -03 degrees QTc Int : 508 ms Ventricular-paced rhythm Possible underlying AF Abnormal ECG When compared with ECG of 20-JAN-2021 15:30, Vent. rate has increased BY 11 BPM Referred By: Nava Sparks Electronically Signed By:HECTOR HOWARD MD
--- NOTE | 2021-12-19 07:28 | ED_ITS ---
HPI - General Adult General Chief complaint: General Medical Stated complaint: runs of afib Time Seen by Provider: 12/19/21 07:27 Source: patient Mode of arrival: EMS History of Present Illness HPI narrative: 86-year-old female who has a pacemaker and is paced at 60 beats per minute is brought in by EMS after she reports feeling palpitations last night approximately 1800 and felt a sharp isolated chest pain that was transient in nature and resolved with burping. She otherwise denies any shortness of breath, GI or symptoms. Related Data Home Medications Medication Instructions Recorded Confirmed albuterol sulfate 90 mcg/actuation 2 puff inhalation TID PRN 03/23/21 aerosol inhaler aspirin 81 mg tablet,delayed 81 mg PO DAILY 03/23/21 release (Adult Aspirin Regimen) cholecalciferol (vitamin D3) 50 50 mcg PO DAILY 03/23/21 mcg (2,000 unit) capsule clonazepam 0.5 mg tablet 0.5 mg PO TID 03/23/21 lisinopril 10 mg tablet 10 mg PO BID 03/23/21 vitamin B complex (B 1 tab PO DAILY 03/23/21 Complex-Vitamin B12) warfarin 5 mg tablet (Jantoven) 5 mg PO DAILY 03/23/21 Previous Rx's Medication Instructions Recorded meclizine 25 mg tablet 25 mg PO TID PRN dizziness #14 tabs 01/20/21 Allergies Allergy/AdvReac Type Severity Reaction Status Date / Time amoxicillin [Amoxicillin] Allergy Mild RASH Verified 03/23/21 14:48 Sulfa (Sulfonamide Allergy Mild RASH Verified 03/23/21 14:48 Antibiotics) sulfacetamide Allergy Unknown Unknown Verified 03/23/21 14:48 Review of Systems Review of Systems: Pertinent positives and negatives as stated in HPI 10 point review of systems is otherwise negative. [facility] [place] Past Medical History Source: nursing notes reviewed Medical History Atrial fibrillation H/O cardiac pacemaker Social History Social History Alcohol intake: never Patient Tobacco Use Status: Never used Tobacco Use of substances other than those prescribed or required for medical reasons: No Advance Directives: No Advance Directives Information Provided: No Advance Directives Date on File: 08/20/20 Physical Exam ED Vital Signs: Vital Signs - 24 hr 12/19/21 07:15 12/19/21 07:18 12/19/21 09:11 Temperature 97.6 F Pulse Rate 62 61 65 Respiratory Rate 14 16 18 Blood Pressure 153/74 H 151/60 H Pulse Oximetry 97 96 95 Oxygen Delivery Method Room Air Room Air Room Air BMI result Body Mass Index 32.0 VITAL SIGNS: Reviewed. GENERAL: Well developed, well nourished, in no acute distress. HEAD: Normocephalic/atraumatic EYES: PERRLA, EOMI EARS: Ext canals without abnormality OROPHARYNX: no oral lesions noted, posterior pharynx clear LUNGS: Bibasilar rales noted, but no tachypnea. SpO2<97> CARDIOVASCULAR: Regular rate and rhythm without noted murmurs, no JVD but mild bilateral extremity edema ABDOMEN: Soft, non-tender, non-distended with bowel sounds. MUSCULOSKELETAL: No tenderness, deformities, or effusions noted on gross inspection. EXTREMITIES: No cyanosis, clubbing or edema. SKIN: Inspection of the skin reveals no rashes NEUROLOGIC: Alert and oriented x 4. Strength and sensation to light touch were grossly intact x 4. Course Course Course Narrative: 86-year-old female with history and clinical presentation suggestive of possible transient palpitations will will evaluate for any evidence of new arrhythmia, CHF. 0850: Suspect infection. Review of all investigations significant for UTI as well CHF exacerbation although patient is not hypoxic. She received initial antibiotics and will receive Lasix and will discussed with inpatient hospitalist team admission. Medical Decision Making Lab Data Result diagrams: 12/19/21 08:18 12/19/21 08:18 Labs: Lab Results 12/19/21 12/19/21 12/19/21 Range/Units 08:18 08:18 08:18 WBC 4.7 L (4.8-10.8) X10*3/uL RBC 4.29 (4.20-5.50) X10*6/uL Hgb 12.7 (12.0-16.0) g/dl Hct 38.2 (37.0-47.0) % MCV 89.0 (80.0-98.0) fL MCH 29.6 (27.0-33.0) pg MCHC 33.2 (31.0-35.0) g/dl RDW 13.8 (11.0-16.0) % Plt Count 155 L (160-400) X10*3/uL MPV 9.7 (9.4-12.3) fL Immature Gran % (Auto) 0.2 (0.0-0.4) % Neut % (Auto) 80.9 H (45-73) % Lymph % (Auto) 10.3 L (20-40) % [place] % (Auto) 8.0 (2-11) % Eos % (Auto) 0.4 (0-4) % Baso % (Auto) 0.2 (0-2) % Lymph # (Auto) 0.5 L (1.2-4.9) X10*3/uL [place] # (Auto) 0.4 (0.1-1.2) X10*3/uL Eos # (Auto) 0.0 (0.0-0.4) X10*3/uL Baso # (Auto) 0.0 (0.0-0.2) X10*3/uL Abs Immat Gran (auto) 0.01 (0.00-0.03) X10*3/uL Absolute Neuts (auto) 3.8 (2.0-8.3) x10*3/uL Absolute Nucleated RBC 0.000 (0.0-0.012) X10*3/uL Nucleated RBC % (auto) 0.0 (0.0-0.2) /100WBC PT 31.3 H (9.9-13.0) SEC INR 2.7 H (0.9-1.1) Sodium 127 L (135-145) mmol/L Potassium 4.5 (3.3-5.1) mmol/L Chloride 91 L (96-108) mmol/L Carbon Dioxide 31 H (22-29) mmol/L Anion Gap 10 L (12-20) BUN 18 H (9-16) mg/dL Creatinine 0.80 (0.5-1.4) mg/dL Estim Creat Clear Calc 70.4 Estimated GFR > 60 Random Glucose 107 (60-115) mg/dL Lactic Acid (0.5-2.0) mmol/L Calcium 9.3 (8.4-10.2) mg/dL Total Bilirubin 1.1 H (0.0-1.0) mg/dL AST 20 (5-31) U/L ALT 6 (0-31) U/L Alkaline Phosphatase 124 H (39-117) U/L Troponin I High Sens (<3.5-17.0) ng/L B-Natriuretic Peptide (<100) pg/mL Total Protein 7.8 (6.5-8.0) g/dL Albumin 4.0 (3.5-5.0) g/dL Urine Color Urine Appearance Urine pH (5.0-8.0) Ur Specific Kimper (1.005-1.025) Urine Protein (NEG-TRACE) MG/DL Urine Glucose (UA) (NEG) MG/DL Urine Ketones (NEG) MG/DL Urine Blood (NEG) Urine Nitrite (NEG) Ur Leukocyte Esterase (NEG) Urine RBC (0) /HPF Urine WBC (0-4) /HPF Ur Squamous Epith Cells /LPF Urine Bacteria /LPF 12/19/21 12/19/21 12/19/21 Range/Units 08:18 08:18 08:18 WBC (4.8-10.8) X10*3/uL RBC (4.20-5.50) X10*6/uL Hgb (12.0-16.0) g/dl Hct (37.0-47.0) % MCV (80.0-98.0) fL MCH (27.0-33.0) pg MCHC (31.0-35.0) g/dl RDW (11.0-16.0) % Plt Count (160-400) X10*3/uL MPV (9.4-12.3) fL Immature Gran % (Auto) (0.0-0.4) % Neut % (Auto) (45-73) % Lymph % (Auto) (20-40) % [place] % (Auto) (2-11) % Eos % (Auto) (0-4) % Baso % (Auto) (0-2) % Lymph # (Auto) (1.2-4.9) X10*3/uL [place] # (Auto) (0.1-1.2) X10*3/uL Eos # (Auto) (0.0-0.4) X10*3/uL Baso # (Auto) (0.0-0.2) X10*3/uL Abs Immat Gran (auto) (0.00-0.03) X10*3/uL Absolute Neuts (auto) (2.0-8.3) x10*3/uL Absolute Nucleated RBC (0.0-0.012) X10*3/uL Nucleated RBC % (auto) (0.0-0.2) /100WBC PT (9.9-13.0) SEC INR (0.9-1.1) Sodium (135-145) mmol/L Potassium (3.3-5.1) mmol/L Chloride (96-108) mmol/L Carbon Dioxide (22-29) mmol/L Anion Gap (12-20) BUN (9-16) mg/dL Creatinine (0.5-1.4) mg/dL Estim Creat Clear Calc Estimated GFR Random Glucose (60-115) mg/dL Lactic Acid (0.5-2.0) mmol/L Calcium (8.4-10.2) mg/dL Total Bilirubin (0.0-1.0) mg/dL AST (5-31) U/L ALT (0-31) U/L Alkaline Phosphatase (39-117) U/L Troponin I High Sens 11.3 (<3.5-17.0) ng/L B-Natriuretic Peptide 558 H (<100) pg/mL Total Protein (6.5-8.0) g/dL Albumin (3.5-5.0) g/dL Urine Color YELLOW Urine Appearance CLEAR Urine pH 6.5 (5.0-8.0) Ur Specific Kim[place] 1.010 (1.005-1.025) Urine Protein TRACE (NEG-TRACE) MG/DL Urine Glucose (UA) NEG (NEG) MG/DL Urine Ketones NEG (NEG) MG/DL Urine Blood 1+ H (NEG) Urine Nitrite NEG (NEG) Ur Leukocyte Esterase 1+ H (NEG) Urine RBC 1-4 (0) /HPF Urine WBC 10-14 H (0-4) /HPF Ur Squamous Epith Cells 2+ /LPF Urine Bacteria 1+ /LPF 12/19/21 Range/Units 09:10 WBC (4.8-10.8) X10*3/uL RBC (4.20-5.50) X10*6/uL Hgb (12.0-16.0) g/dl Hct (37.0-47.0) % MCV (80.0-98.0) fL MCH (27.0-33.0) pg MCHC (31.0-35.0) g/dl RDW (11.0-16.0) % Plt Count (160-400) X10*3/uL MPV (9.4-12.3) fL Immature Gran % (Auto) (0.0-0.4) % Neut % (Auto) (45-73) % Lymph % (Auto) (20-40) % [place] % (Auto) (2-11) % Eos % (Auto) (0-4) % Baso % (Auto) (0-2) % Lymph # (Auto) (1.2-4.9) X10*3/uL [place] # (Auto) (0.1-1.2) X10*3/uL Eos # (Auto) (0.0-0.4) X10*3/uL Baso # (Auto) (0.0-0.2) X10*3/uL Abs Immat Gran (auto) (0.00-0.03) X10*3/uL Absolute Neuts (auto) (2.0-8.3) x10*3/uL Absolute Nucleated RBC (0.0-0.012) X10*3/uL Nucleated RBC % (auto) (0.0-0.2) /100WBC PT (9.9-13.0) SEC INR (0.9-1.1) Sodium (135-145) mmol/L Potassium (3.3-5.1) mmol/L Chloride (96-108) mmol/L Carbon Dioxide (22-29) mmol/L Anion Gap (12-20) BUN (9-16) mg/dL Creatinine (0.5-1.4) mg/dL Estim Creat Clear Calc Estimated GFR Random Glucose (60-115) mg/dL Lactic Acid 0.8 (0.5-2.0) mmol/L Calcium (8.4-10.2) mg/dL Total Bilirubin (0.0-1.0) mg/dL AST (5-31) U/L ALT (0-31) U/L Alkaline Phosphatase (39-117) U/L Troponin I High Sens (<3.5-17.0) ng/L B-Natriuretic Peptide (<100) pg/mL Total Protein (6.5-8.0) g/dL Albumin (3.5-5.0) g/dL Urine Color Urine Appearance Urine pH (5.0-8.0) Ur Specific Kim[place] (1.005-1.025) Urine Protein (NEG-TRACE) MG/DL Urine Glucose (UA) (NEG) MG/DL Urine Ketones (NEG) MG/DL Urine Blood (NEG) Urine Nitrite (NEG) Ur Leukocyte Esterase (NEG) Urine RBC (0) /HPF Urine WBC (0-4) /HPF Ur Squamous Epith Cells /LPF Urine Bacteria /LPF ECG Data Attestation: I personally reviewed and interpreted this ECG as follows: Prior ECG tracings: available for review Interpretation: Ventricular pace rhythm with PVCs, HR-71, no STEMI, no changes when compared to prior. Discharge Plan Discharge Clinical Impression: Acute UTI, CHF exacerbation, Chronic anticoagulation Patient Disposition: Admitted As Inpatient Prescriptions: No Action meclizine 25 mg tablet 25 mg PO TID PRN (Reason: dizziness) Qty: 14 0RF
[2021-12-19 08:23] LABS: MANUAL DIFF FLAG NO
[2021-12-19 08:25] LABS: Appearance Urine CLEAR; Color Urine YELLOW; Glucose Urine UA NEG (NEG); Leukocyte Esterase Urine 1+ (NEG); Nitrite Urine NEG (NEG); PH 6.5 (5.0-8.0); UACC Culture Trigger YES; Urine Blood 1+ (NEG); Urine Ketones NEG (NEG); Urine Protein TRACE MG/DL (NEG-TRACE)
[2021-12-19 08:26] LABS: Basophils Percent Auto 0.2 % (0-2); Eosinophils Percent Auto 0.4 % (0-4); Hematocrit 38.2 % (37.0-47.0); Hemoglobin 12.7 g/dl (12.0-16.0); Imm Gran Abs Auto 0.01 X10*3/uL (0.00-0.03); Imm Gran Pct Auto 0.2 % (0.0-0.4); Lymphocytes Absolute Auto 0.5 X10*3/uL (1.2-4.9); Lymphocytes Percent Auto 10.3 % (20-40); Mean Corpuscular HGB Conc 33.2 g/dl (31.0-35.0); Mean Corpuscular Hemoglobin 29.6 pg (27.0-33.0); Mean Platelet Volume 9.7 fL (9.4-12.3); Monocytes Absolute Auto 0.4 X10*3/uL (0.1-1.2); Neutrophils Absolute Auto 3.8 x10*3/uL (2.0-8.3); Neutrophils Percent Auto 80.9 % (45-73); Platelet Count 155 X10*3/uL (160-400); Red Blood Count 4.29 X10*6/uL (4.20-5.50); Red Cell Distribution Width 13.8 % (11.0-16.0); White Blood Count 4.7 X10*3/uL (4.8-10.8)
[2021-12-19 08:30] LABS: INTERNATIONAL NORM RATIO 2.7 (0.9-1.1); Prothrombin Time 31.3 SEC (9.9-13.0)
[2021-12-19 08:38] LABS: Bacteria Urine 1+ /LPF; Squamous Epithelial Cell Urine 2+ /LPF
[2021-12-19 08:43] LABS: Alanine Aminotransferase 6 U/L (0-31); Alkaline Phosphatase 124 U/L (39-117); Anion Gap 10 (12-20); Aspartate Amino Transferase 20 U/L (5-31); Bilirubin Total 1.1 mg/dL (0.0-1.0); Blood Urea Nitrogen 18 mg/dL (9-16); Calcium 9.3 mg/dL (8.4-10.2); Carbon Dioxide 31 mmol/L (22-29); Chloride 91 mmol/L (96-108); Creatinine Clr Calc Pharmacy 70.4; Estimated Glomerular Filt Rate > 60; Glucose Random 107 mg/dL (60-115); Potassium 4.5 mmol/L (3.3-5.1); Sodium 127 mmol/L (135-145); Total Protein 7.8 g/dL (6.5-8.0)
[2021-12-19 08:44] LABS: Troponin-I High Sensitivity 11.3 ng/L (<3.5-17.0)
[2021-12-19 09:11] VITALS: BP 151/60; PULSE 65; RESP 18; O2SAT 95
[2021-12-19 09:30] LABS: Lactic Acid 0.8 mmol/L (0.5-2.0)
[2021-12-19 09:49] LABS: B Type Natriuretic Peptide 558 pg/mL (<100)
[2021-12-19] MEDS: cefTRIAXone sodium 1 GM in 0.9 % Sodium Chloride 50 ML IV (10:07)
[2021-12-19 10:42] LABS: COVID-19 Test Negative (Negative); IDNOW Serial# 16C4AD1C
[2021-12-19] MEDS: Furosemide 100 MG/10 ML VIAL 60 MG IVPUSH (11:20)
[2021-12-19 11:25] VITALS: BP 142/61; PULSE 60
[2021-12-19 14:04] VITALS: BP 154/76; PULSE 65; RESP 14; O2SAT 97
--- NOTE | 2021-12-19 15:27 | PC.NURSE ---
britt thompson [phone] attempted to call daughter for patient to obtain a ride home and got a voicemail, message was left for her to return call to the ED. will notify primary nurse..
== END 2021-12-19 16:22 | disposition home or self-care (01) ==
PROVIDERS: Emergency Provider Student in an Organized Health Care Education/Training Program; PCP Family Medicine
DX: I50.9 Heart failure, unspecified (principal); N39.0 Urinary tract infection, site not specified; I48.91 Unspecified atrial fibrillation; Z79.01 Long term (current) use of anticoagulants; Z95.0 Presence of cardiac pacemaker; Z20.822 Contact with and (suspected) exposure to COVID-19
CPT/HCPCS: 36415; 71045; 80053; 81001; 83605; 83880; 84484; 85025; 85610; 87040; 87086; 87635; 93005; 96365; 96375; 99284; J0696; J1940